=== PATIENT | female | born 1995 | race Caucasian/White ===

== ENCOUNTER 2016-04-18 18:59 | Observation (INO) | payer OTHER | END 2016-04-19 12:10 | disposition home or self-care (01) | LOC: GENOP 18:59 → ZOBSOF 22:50 → OB 22:53 | PROVIDERS: ADMIT Obstetrics & Gynecology | DX: O47.03 False labor before 37 completed weeks of gestation, third trimester (principal); O99.89 Other specified diseases and conditions complicating pregnancy, childbirth and the puerperium; R10.9 Unspecified abdominal pain; M54.9 Dorsalgia, unspecified; Z3A.34 34 weeks gestation of pregnancy; Z87.440 Personal history of urinary (tract) infections; Z79.899 Other long term (current) drug therapy; Z98.890 Other specified postprocedural states | CPT/HCPCS: 82731; 96360; 96361; 96375; G0378; G0463; J0702; J7120 ==

== ENCOUNTER → 2016-04-20 | Outpatient (CLI) | payer OTHER | LOC: GENOP 09:48 | DX: Z34.83 Encounter for supervision of other normal pregnancy, third trimester (principal); Z3A.35 35 weeks gestation of pregnancy | CPT/HCPCS: 81001; G0463 ==

== ENCOUNTER 2016-04-28 13:00 | Outpatient (CLI) | payer OTHER | END 2016-04-28 16:06 | disposition home or self-care (01) | LOC: GENOP 13:00 | DX: O47.03 False labor before 37 completed weeks of gestation, third trimester (principal); Z3A.35 35 weeks gestation of pregnancy | CPT/HCPCS: 96360; J7120 ==

== ENCOUNTER 2016-05-05 21:05 | Observation (INO) | payer OTHER ==
[2016-05-05 22:19] LABS: HEMOGLOBIN 10.7 gm/dl (12.3-15.3); RED BLOOD COUNT 3.45 M/UL (4.00-5.10); WHITE BLOOD COUNT 16.2 K/UL (4.5-11.0)
== END 2016-05-06 12:15 | disposition home or self-care (01) ==
LOC: GENOP 21:05 → OB 21:45
PROVIDERS: ADMIT Obstetrics & Gynecology
DX: O60.03 Preterm labor without delivery, third trimester (principal); O21.9 Vomiting of pregnancy, unspecified; Z3A.36 36 weeks gestation of pregnancy; Z79.899 Other long term (current) drug therapy
CPT/HCPCS: 36415; 59025; 81001; 85025; 87086; 96360; 96361; 96374; 96375; 96376; G0378; J2300; J2405; J7120

== ENCOUNTER → 2016-05-06 | Outpatient (CLI) | payer OTHER ==
[2016-05-06 19:23] LABS: BUN/CREATININE RATIO 23 (0-10)
== END ==
LOC: GENOP 18:14
PROVIDERS: Obstetrics & Gynecology
DX: O99.89 Other specified diseases and conditions complicating pregnancy, childbirth and the puerperium (principal); E86.0 Dehydration; Z3A.36 36 weeks gestation of pregnancy
CPT/HCPCS: 36415; 80053; 81001; 82009; 82150; 83690; 84443; G0463

== ENCOUNTER 2016-05-17 09:58 | Outpatient (CLI) | payer OTHER | END 2016-05-17 12:38 | disposition home or self-care (01) | LOC: GENOP 09:58 | DX: O99.89 Other specified diseases and conditions complicating pregnancy, childbirth and the puerperium (principal); R10.9 Unspecified abdominal pain; Z3A.21 21 weeks gestation of pregnancy | CPT/HCPCS: 81001; 87086; G0463 ==

== ENCOUNTER 2016-05-21 05:46 | Inpatient (IN) | payer OTHER ==
[~2016-05-21] VITALS: Ht 157.5 cm; Wt 83.9 kg
[2016-05-21 10:21] LABS: HEMOGLOBIN 10.1 gm/dl (12.3-15.3); RED BLOOD COUNT 3.4 M/UL (4.00-5.10); WHITE BLOOD COUNT 12.5 K/UL (4.5-11.0)
[2016-05-22 03:21] LABS: HEMOGLOBIN 9.3 gm/dl (12.3-15.3)
== END 2016-05-22 15:47 | disposition home or self-care (01) | DRG 775 ==
LOC: OB 05:46
PROVIDERS: Obstetrics & Gynecology; ADMIT Obstetrics & Gynecology
PROC: 3E033VJ Introduction of Other Hormone into Peripheral Vein, Percutaneous Approach (ICD-10-PCS; principal; 2016-05-21)
PROC: 10E0XZZ Delivery of Products of Conception, External Approach (ICD-10-PCS; 2016-05-21)
PROC: 10907ZC Drainage of Amniotic Fluid, Therapeutic from Products of Conception, Via Natural or Artificial Opening (ICD-10-PCS; 2016-05-21)
PROC: 3E0234Z Introduction of Serum, Toxoid and Vaccine into Muscle, Percutaneous Approach (ICD-10-PCS; 2016-05-22)
DX: O99.334 Smoking (tobacco) complicating childbirth (principal); F17.210 Nicotine dependence, cigarettes, uncomplicated; O99.344 Other mental disorders complicating childbirth; F31.9 Bipolar disorder, unspecified; Z3A.39 39 weeks gestation of pregnancy; Z37.0 Single live birth; O99.284 Endocrine, nutritional and metabolic diseases complicating childbirth; E03.9 Hypothyroidism, unspecified; R21 Rash and other nonspecific skin eruption; Z87.440 Personal history of urinary (tract) infections; L81.8 Other specified disorders of pigmentation; Z23 Encounter for immunization; Z82.49 Family history of ischemic heart disease and other diseases of the circulatory system; Z80.3 Family history of malignant neoplasm of breast; Z80.9 Family history of malignant neoplasm, unspecified; Z82.5 Family history of asthma and other chronic lower respiratory diseases; Z83.49 Family history of other endocrine, nutritional and metabolic diseases; Z83.3 Family history of diabetes mellitus; Z82.79 Family history of other congenital malformations, deformations and chromosomal abnormalities; Z83.2 Family history of diseases of the blood and blood-forming organs and certain disorders involving the immune mechanism
CPT/HCPCS: 36415; 81001; 82800; 85014; 85018; 85025; 90715; J2300; J2590; J2795; J3010; J7120

== ENCOUNTER 2020-07-02 00:49 | Emergency (ER) | payer BC ==
[~2020-07-02 00:49] MED LIST: BUTALB-ACETAMI1 EAC1 PO; CLEOCIN HCL300 MG PO; COLACE 100MG C100 MG PO; IBUPROFEN600 MG PO; LORTAB 5-325 M1 EACH PO; PRENATAL VITAM1 EAC5 PO; PRENATAL VITAM1 EAC8 PO
[2020-07-02 03:17] LABS: HEMOGLOBIN 12.7 gm/dl (12.3-15.3); RED BLOOD COUNT 4.1 M/UL (4.00-5.10)
[2020-07-02 03:47] LABS: BUN/CREATININE RATIO 26 (0-10)
[2020-07-02] MEDS ORDERED: ATROVENT-HFA12.9 GM INH (04:38)
[2020-07-02] MEDS ORDERED: ATIVAN1 MG PO (04:38)
== END 2020-07-02 04:47 | disposition home or self-care (01) ==
LOC: ER1 00:49
PROVIDERS: Family Medicine
DX: J45.909 Unspecified asthma, uncomplicated (principal); F17.290 Nicotine dependence, other tobacco product, uncomplicated
CPT/HCPCS: 71045; 80053; 82550; 82553; 83874; 84484; 85025; 85379; 93005; 99285

== ENCOUNTER 2020-08-07 09:57 | Emergency (ER) | payer BC ==
[~2020-08-07 09:57] MED LIST changes: +ATIVAN1 MG PO; +ATROVENT-HFA12.9 GM INH
[2020-08-07 10:27] LABS: HEMOGLOBIN 13.9 gm/dl (12.3-15.3); RED BLOOD COUNT 4.5 M/UL (4.00-5.10); WHITE BLOOD COUNT 6.4 K/UL (4.5-11.0)
[2020-08-07 10:59] LABS: BUN/CREATININE RATIO 21 (0-10)
== END 2020-08-07 11:43 | disposition home or self-care (01) ==
LOC: ER1 09:57
PROVIDERS: Physician Assistant
DX: R07.89 Other chest pain (principal); F41.9 Anxiety disorder, unspecified; F17.200 Nicotine dependence, unspecified, uncomplicated; Z79.899 Other long term (current) drug therapy
CPT/HCPCS: 71045; 80053; 82550; 82553; 83874; 84484; 85025; 85379; 93005; 96374; 99285; J1885

== ENCOUNTER 2020-08-09 19:13 | Emergency (ER) | payer BC ==
[2020-08-09 20:12] LABS: HEMOGLOBIN 13.6 gm/dl (12.3-15.3); RED BLOOD COUNT 4.37 M/UL (4.00-5.10); WHITE BLOOD COUNT 8.8 K/UL (4.5-11.0)
[2020-08-09 20:38] LABS: BUN/CREATININE RATIO 23 (0-10)
[2020-08-09] MEDS ORDERED: CEPHALEXIN500 MG PO (23:03)
[2020-08-09] MEDS ORDERED: VISTARIL50 MG PO (23:03)
[2020-08-09] MEDS ORDERED: ONDANSETRON ODT4 MG SL (23:03)
== END 2020-08-09 23:09 | disposition home or self-care (01) ==
LOC: ER1 19:13
PROVIDERS: Physician Assistant
DX: E86.0 Dehydration (principal); N39.0 Urinary tract infection, site not specified; E87.6 Hypokalemia; F41.9 Anxiety disorder, unspecified; F17.290 Nicotine dependence, other tobacco product, uncomplicated; Z79.899 Other long term (current) drug therapy
CPT/HCPCS: 80053; 81001; 83690; 84703; 85025; 96374; 99284; J2405; J7030; Q0177

== ENCOUNTER 2020-08-13 18:36 | Emergency (ER) | payer BC ==
[~2020-08-13 18:36] MED LIST changes: +CEPHALEXIN500 MG PO; +ONDANSETRON ODT4 MG SL; +VISTARIL50 MG PO
[2020-08-13 20:22] LABS: HEMOGLOBIN 14.6 gm/dl (12.3-15.3); RED BLOOD COUNT 4.6 M/UL (4.00-5.10); WHITE BLOOD COUNT 8.9 K/UL (4.5-11.0)
[2020-08-13 20:40] LABS: BUN/CREATININE RATIO 13 (0-10)
[2020-08-13] MEDS ORDERED: PHENERGAN 25 MG25 M1 PO (23:15)
[2020-08-13] MEDS ORDERED: ONDANSETRON ODT4 MG SL (23:15)
[2020-08-13] MEDS ORDERED: PROTONIX 40 MG40 M1 PO (23:15)
== END 2020-08-13 23:50 | disposition home or self-care (01) ==
LOC: ER1 18:36
PROVIDERS: Physician Assistant
DX: R07.89 Other chest pain (principal); E86.0 Dehydration; R11.2 Nausea with vomiting, unspecified; F17.290 Nicotine dependence, other tobacco product, uncomplicated
CPT/HCPCS: 71045; 80053; 81001; 82550; 82553; 83690; 83874; 84484; 84703; 85025; 93005; 96374; 99285; J1885; J2405

== ENCOUNTER 2020-08-20 08:25 | Emergency (ER) | payer BC ==
[~2020-08-20 08:25] MED LIST changes: +PHENERGAN 25 MG25 M1 PO; +PROTONIX 40 MG40 M1 PO
[2020-08-20 09:12] LABS: HEMOGLOBIN 14.6 gm/dl (12.3-15.3); RED BLOOD COUNT 4.66 M/UL (4.00-5.10); WHITE BLOOD COUNT 6.5 K/UL (4.5-11.0)
[2020-08-20 10:46] LABS: BUN/CREATININE RATIO 15 (0-10)
[2020-08-20] MEDS ORDERED: ZOFRAN ODT 4 MG4 MG PO (12:34)
[2020-08-20] MEDS ORDERED: PEPCID20 MG PO (12:34)
[2020-08-20] MEDS ORDERED: BENTYL 10MG CAP10 MG PO (12:34)
[2020-08-20] MEDS ORDERED: MACROBID 100 M100 MG PO (12:34)
== END 2020-08-20 13:00 | disposition home or self-care (01) ==
LOC: ER1 08:25
PROVIDERS: Nurse Practitioner
DX: N39.0 Urinary tract infection, site not specified (principal); R10.10 Upper abdominal pain, unspecified; R07.9 Chest pain, unspecified; F17.290 Nicotine dependence, other tobacco product, uncomplicated
CPT/HCPCS: 71045; 80053; 81001; 82550; 82553; 83605; 83690; 84484; 84703; 85025; 87086; 93005; 96374; 96375; 99284; J0500; J2405; J7030; Q9967

== ENCOUNTER 2020-10-19 18:26 | Emergency (ER) | payer BC ==
[~2020-10-19 18:26] MED LIST changes: +BENTYL 10MG CAP10 MG PO; +MACROBID 100 M100 MG PO; +PEPCID20 MG PO; +ZOFRAN ODT 4 MG4 MG PO
[2020-10-19] MEDS ORDERED: ATIVAN 1MG TABLE1 MG PO (19:31)
[2020-10-19] MEDS ORDERED: PROZAC 20 MG CA20 MG GT (19:31)
== END 2020-10-19 19:46 | disposition home or self-care (01) ==
LOC: ER1 18:26
DX: F41.9 Anxiety disorder, unspecified (principal)
CPT/HCPCS: 93005; 99283

== ENCOUNTER → 2021-03-16 | Outpatient (CLI) | payer BC ==
[~2021-03-16] MED LIST changes: +ATIVAN 1MG TABLE1 MG PO; +PROZAC 20 MG CA20 MG GT
== END ==
LOC: RAD 11:20
DX: R06.02 Shortness of breath (principal)
CPT/HCPCS: 71046

== ENCOUNTER 2021-03-17 10:39 | Emergency (ER) | payer BC ==
[2021-03-17 13:05] LABS: RED BLOOD COUNT 4.54 M/UL (4.00-5.10); WHITE BLOOD COUNT 8.1 K/UL (4.5-11.0)
[2021-03-17 13:37] LABS: BUN/CREATININE RATIO 19 (0-10)
== END 2021-03-17 15:30 | disposition home or self-care (01) ==
LOC: ER1 10:39
PROVIDERS: Physician Assistant Medical
DX: U09.9 Post COVID-19 condition, unspecified (principal); R07.9 Chest pain, unspecified; F17.290 Nicotine dependence, other tobacco product, uncomplicated
CPT/HCPCS: 80053; 82550; 82553; 83874; 84484; 85025; 99285; Q9967

== ENCOUNTER → 2021-03-18 | Outpatient (CLI) | payer BC | LOC: HEART 5 14:57 | DX: R09.02 Hypoxemia (principal); R06.02 Shortness of breath | CPT/HCPCS: 94010; 94729 ==

== ENCOUNTER → 2021-04-15 | Outpatient (CLI) | payer BC | LOC: HEART 5 15:26 | DX: R00.2 Palpitations (principal) ==